=== PATIENT | female | born 1995 | race African-American/Black ===

== ENCOUNTER 2022-05-16 11:37 | Outpatient (CLI) | payer OTHER | END 2022-05-16 19:28 | disposition home or self-care (01) | LOC: LABW 11:37 | PROVIDERS: ATTEND Family Medicine | DX: Z20.2 Contact with and (suspected) exposure to infections with a predominantly sexual mode of transmission (principal) | CPT/HCPCS: 36415; 80074; 86592; 87490; 87535; 87590; G0432 ==